=== PATIENT | female | born 1985 | race Asian ===

== ENCOUNTER 2018-10-03 07:00 | Day surgery (SDC) | payer BC ==
[~2018-10-03] VITALS: Ht 160 cm; Wt 54.4 kg
[2018-10-03] MEDS ORDERED: KETOROLAC TROMETHAMINE 30 MG VIAL IVP PRN (09:00)
[2018-10-03] MEDS ORDERED: fentaNYL CITRATE/PF 100 MCG/2 ML AMP IVP PRN ×2 (09:00)
[2018-10-03] MEDS ORDERED: ONDANSETRON HCL 4 MG/2 ML VIAL IVP PRN ×2 (09:00→12:00)
[2018-10-03] MEDS ORDERED: LR 1,000 ML IV.SOLN IV ONE (09:37)
[2018-10-03] MEDS ORDERED: PROPOFOL 200MG/ 20ML VIAL (DIPRIVAN) IV ONE (09:37)
[2018-10-03] MEDS ORDERED: NS IRRIG SOLN 5000 ML IR ONE (09:37)
[2018-10-03] MEDS ORDERED: SEVOFLURANE 15 MIN GAS INH ONE (09:37)
[2018-10-03] MEDS ORDERED: MIDAZOLAM HCL 5 MG/5 ML VIAL IVP ONE (09:37)
[2018-10-03] MEDS ORDERED: fentaNYL CITRATE/PF 100 MCG/2 ML AMP IVP ONE (09:37)
[2018-10-03] MEDS ORDERED: OXYCODONE/ACETAMINOPHEN 5-325 TABLET PO PRN ×2 (10:30→12:00)
[2018-10-03] MEDS ORDERED: ONDANSETRON HCL 4 MG/2 ML VIAL ONE (11:02)
[2018-10-03] MEDS ORDERED: fentaNYL CITRATE/PF 100 MCG/2 ML AMP ONE (11:03)
[2018-10-03] MEDS ORDERED: IBUPROFEN 800 MG TABLET PO PRN (12:00)
[2018-10-03] MEDS ORDERED: PROMETHAZINE INJ.Non-Formulary 25 MG/ML AMP IM ONE (13:15)
[2018-10-03] MEDS ORDERED: PROMETHAZINE INJ.Non-Formulary 25 MG/ML AMP ONE (13:23)
[2018-10-03 15:32] VITALS: BP_SYST 118
== END 2018-10-03 15:40 | disposition home or self-care (01) ==
LOC: SDS 07:00 → SMU 07:00 → SDS 15:40
PROVIDERS: ATTEND Obstetrics & Gynecology
DX: N84.0 Polyp of corpus uteri (principal); E03.9 Hypothyroidism, unspecified; Z79.899 Other long term (current) drug therapy; Z82.49 Family history of ischemic heart disease and other diseases of the circulatory system
CPT/HCPCS: 58558; 88305; C1819; J2250; J2405; J2550; J2704; J3010; J7120